=== PATIENT | male | born 1960 | race Caucasian/White ===

== ENCOUNTER 2018-03-21 16:06 | Emergency (ER) | payer BC ==
[~2018-03-21] VITALS: Ht 182.9 cm; Wt 90.7 kg
[2018-03-21 16:07] VITALS: BP 139/58; Ht 182.9 cm; Wt 90.7 kg
== END 2018-03-21 20:13 | disposition expired ==
LOC: ED 16:06
DX: I46.9 Cardiac arrest, cause unspecified (principal); F17.210 Nicotine dependence, cigarettes, uncomplicated